=== PATIENT | male | born 1970 | race Two or more races ===

== ENCOUNTER 2021-07-05 20:51 | Emergency (ER) | payer MEDICAID, OTHER ==
[~2021-07-05] VITALS: Ht 170.2 cm; Wt 88.5 kg
[2021-07-05] MEDS ORDERED: KETOROLAC TROMETH 60MG/2ML VIAL IM ONE (22:45)
[2021-07-05 23:25] LABS: Basophils # (auto) 0.1 10 ^3/uL (0-0.2); Basophils % (auto) 1.1 % (0.0-2.0); Eosinophils # (auto) 0.2 10 ^3/uL (0-0.8); Eosinophils % (auto) 3.3 % (0.0-7.0); Hematocrit 43.2 % (41.0-53.0); Hemoglobin 14.9 g/dL (13.5-17.5); Lymphocytes # (auto) 2.4 10 ^3/uL (0.4-5.4); Lymphocytes % (auto) 45.5 % (10.0-50.0); Mean Corpuscular Hemoglobin 33.3 pg (28.0-32.0); Mean Corpuscular Hgb Conc. 34.5 g/dL (32.0-36.0); Mean Corpuscular Volume 96.5 fL (80.0-100.0); Monocytes # (auto) 0.3 10 ^3/uL (0-1.3); Monocytes % (auto) 4.9 % (0.0-12.0); Neutrophils # (auto) 2.4 10 ^3/uL (1.6-8.6); Neutrophils % (auto) 45.2 % (37.0-80.0); Red Blood Cells 4.47 10^6/uL (4.5-5.90); White Blood Cell 5.3 10^3/uL (4.4-10.8)
[2021-07-05 23:46] LABS: BUN/Creatinine Ratio 9.7; Calcium 8.9 mg/dL (8.5-10.1); Potassium 4.1 mmol/L (3.5-5.1)
[2021-07-05 23:48] LABS: Bilirubin, Total 0.7 mg/dL (0.2-1.0); Total Protein 7.5 g/dL (6.4-8.2)
[2021-07-06 02:55] VITALS: BP 145/99
== END 2021-07-06 02:05 | disposition home or self-care (01) ==
LOC: ER 20:51
DX: R10.32 Left lower quadrant pain (principal); R11.2 Nausea with vomiting, unspecified
CPT/HCPCS: 36415; 74176; 80053; 83690; 84484; 85025; 93005; 96372; 99285; J1885

== ENCOUNTER 2021-07-12 09:42 | Emergency (ER) | payer MEDICAID ==
[~2021-07-12] VITALS: Ht 167.6 cm; Wt 88.5 kg
[2021-07-12 10:02] VITALS: BP 117/76
== END 2021-07-13 02:52 | disposition left against medical advice (07) ==
LOC: ER 09:42
DX: R10.32 Left lower quadrant pain (principal); R11.2 Nausea with vomiting, unspecified; Z53.21 Procedure and treatment not carried out due to patient leaving prior to being seen by health care provider

== ENCOUNTER 2022-05-08 17:58 | Inpatient (IN) | payer MEDICAID ==
[~2022-05-08] VITALS: Ht 167.6 cm; Wt 72.6 kg
[2022-05-08] MEDS ORDERED: SODIUM CHLORIDE 0.9% 1,000 ML IV ONE (18:15)
[2022-05-08] MEDS ORDERED: ASPirin 325 MG TAB PO ONE (18:15)
[2022-05-08 18:43] LABS: Basophils # (auto) 0 10 ^3/uL (0-0.2); Basophils % (auto) 0.9 % (0.0-2.0); Eosinophils # (auto) 0.1 10 ^3/uL (0-0.8); Eosinophils % (auto) 2.8 % (0.0-7.0); Hematocrit 39.3 % (41.0-53.0); Hemoglobin 13.4 g/dL (13.5-17.5); Lymphocytes % (auto) 38.6 % (10.0-50.0); Mean Corpuscular Hgb Conc. 34.2 g/dL (32.0-36.0); Mean Corpuscular Volume 96.4 fL (80.0-100.0); Monocytes # (auto) 0.2 10 ^3/uL (0-1.3); Monocytes % (auto) 4.2 % (0.0-12.0); Neutrophils # (auto) 2.7 10 ^3/uL (1.6-8.6); Neutrophils % (auto) 53.5 % (37.0-80.0); Nucleated Red Blood Cells % 0.4 %; Red Blood Cells 4.07 10^6/uL (4.5-5.90); Red Cell Distribution Width 13.7 % (11.8-14.3); White Blood Cell 5.1 10^3/uL (4.4-10.8)
[2022-05-08 19:03] LABS: INR 1.05 (0.9-1.15); Partial Thromboplastin Time 31.6 sec (24.6-33.4)
[2022-05-08 19:09] LABS: Albumin 3.3 g/dL (3.4-5.0); Calcium 8.5 mg/dL (8.5-10.1); Magnesium 2.4 mg/dL (1.6-2.6); Potassium 4.3 mmol/L (3.5-5.1)
[2022-05-08 19:14] LABS: BUN/Creatinine Ratio 7.9; Bilirubin, Total 0.4 mg/dL (0.2-1.0); Total Protein 6.6 g/dL (6.4-8.2)
[2022-05-08] MEDS ORDERED: ACETAMINOPHEN 325 MG TAB PO PRN (22:30)
[2022-05-08] MEDS ORDERED: HYDROcodone-ACET 5/325MG TAB PO PRN (22:30)
[2022-05-08] MEDS ORDERED: DOCUSATE SOD 100 MG CAP PO PRN (22:30)
[2022-05-08] MEDS ORDERED: SOD CHL 0.45% 1,000 ML IV SCH (22:30)
[2022-05-08] MEDS ORDERED: ONDANSETRON HCL 4 MG/2 ML VIAL IV PRN (22:30)
[2022-05-09] MEDS ORDERED: NITROGLYCERIN 0.4 MG SL TAB SL PRN (00:45)
[2022-05-09] MEDS ORDERED: MORPHINE SULFATE INJ 2 MG/ml SYRG IV PRN (00:45)
[2022-05-09 05:30] VITALS: BP 116/78
[2022-05-09 05:57] LABS: Basophils # (auto) 0 10 ^3/uL (0-0.2); Basophils % (auto) 1.1 % (0.0-2.0); Eosinophils # (auto) 0.2 10 ^3/uL (0-0.8); Eosinophils % (auto) 3.8 % (0.0-7.0); Hematocrit 35.8 % (41.0-53.0); Hemoglobin 12.4 g/dL (13.5-17.5); Lymphocytes # (auto) 1.3 10 ^3/uL (0.4-5.4); Mean Corpuscular Hemoglobin 32.7 pg (28.0-32.0); Mean Corpuscular Hgb Conc. 34.6 g/dL (32.0-36.0); Mean Corpuscular Volume 94.5 fL (80.0-100.0); Monocytes # (auto) 0.3 10 ^3/uL (0-1.3); Monocytes % (auto) 6.7 % (0.0-12.0); Neutrophils # (auto) 2.3 10 ^3/uL (1.6-8.6); Neutrophils % (auto) 55.4 % (37.0-80.0); Nucleated Red Blood Cells % 0.1 %; Red Blood Cells 3.78 10^6/uL (4.5-5.90); Red Cell Distribution Width 13.7 % (11.8-14.3); White Blood Cell 4.1 10^3/uL (4.4-10.8)
[2022-05-09 06:18] LABS: BUN/Creatinine Ratio 12.1; Calcium 8.3 mg/dL (8.5-10.1); Potassium 4.2 mmol/L (3.5-5.1)
[2022-05-09 06:27] LABS: Bilirubin, Total 0.2 mg/dL (0.2-1.0); Total Protein 6.2 g/dL (6.4-8.2)
[2022-05-09 07:19] LABS: Urine Bacteria NONE SEEN /hpf (None Seen); Urine Blood Negative /uL (Negative); Urine Mucus FEW (None Seen); Urine Specific Gravity 1.023 (1.001-1.035); Urine WBC 2 /hpf (0 - 3)
[2022-05-09] MEDS ORDERED: FAMOTIDINE (10MG/ML) 2ML VL IV SCH (10:00)
[2022-05-09] MEDS ORDERED: ASPirin 81 mg TAB PO SCH (10:00)
== END 2022-05-09 08:05 | disposition left against medical advice (07) | DRG 47 ==
LOC: ER 17:58 → TELE 05-09 00:32
PROVIDERS: ADMIT Nurse Practitioner Family; ATTEND Nurse Practitioner Acute Care
DX: G45.9 Transient cerebral ischemic attack, unspecified (principal); E88.09 Other disorders of plasma-protein metabolism, not elsewhere classified; Z20.822 Contact with and (suspected) exposure to COVID-19; Z53.29 Procedure and treatment not carried out because of patient's decision for other reasons
CPT/HCPCS: 36415; 70450; 71045; 80053; 81001; 83735; 83880; 84484; 85025; 85379; 85610; 85730; 87426; 93971; 96360; G0378

== ENCOUNTER 2022-05-09 09:28 | Inpatient (IN) | payer MEDICAID ==
[~2022-05-09] VITALS: Ht 167.6 cm; Wt 165.2 kg
[2022-05-09] MEDS ORDERED: MORPHINE SULFATE INJ 2 MG/ml SYRG IV PRN (12:45)
[2022-05-09] MEDS ORDERED: NITROGLYCERIN 0.4 MG SL TAB SL PRN (12:45)
[2022-05-09] MEDS ORDERED: NICOTINE 7MG/24HR TOPICAL PATCH TD ONE (13:00)
[2022-05-09 14:06] LABS: Cholesterol 135 mg/dL (< 200); Triglycerides 72 mg/dL (< 150)
[2022-05-09 14:12] LABS: HDL Cholesterol 62 mg/dL (40-59); LDL Cholesterol 71 mg/dL (< 100)
[2022-05-09] MEDS: SODIUM CHLORIDE 0.9% 1,000 ML IV SCH ×2 (20:35→21:34)
[2022-05-09] MEDS: HYDROcodone-ACET 5/325MG TAB PO PRN (23:10)
[2022-05-10] MEDS: SODIUM CHLORIDE 0.9% 1,000 ML IV SCH ×3 (05:28→19:45)
[2022-05-10] MEDS: HYDROcodone-ACET 5/325MG TAB PO PRN ×3 (05:41→18:28)
[2022-05-10 08:41] LABS: Basophils # (auto) 0 10 ^3/uL (0-0.2); Basophils % (auto) 0.6 % (0.0-2.0); Eosinophils # (auto) 0.1 10 ^3/uL (0-0.8); Hematocrit 38.8 % (41.0-53.0); Hemoglobin 13.3 g/dL (13.5-17.5); Lymphocytes % (auto) 24.2 % (10.0-50.0); Mean Corpuscular Hemoglobin 33.4 pg (28.0-32.0); Mean Corpuscular Hgb Conc. 34.3 g/dL (32.0-36.0); Mean Corpuscular Volume 97.5 fL (80.0-100.0); Monocytes # (auto) 0.3 10 ^3/uL (0-1.3); Monocytes % (auto) 6.3 % (0.0-12.0); Neutrophils # (auto) 2.8 10 ^3/uL (1.6-8.6); Neutrophils % (auto) 65.9 % (37.0-80.0); Nucleated Red Blood Cells % 0.1 %; Red Blood Cells 3.99 10^6/uL (4.5-5.90); Red Cell Distribution Width 13.7 % (11.8-14.3); White Blood Cell 4.2 10^3/uL (4.4-10.8)
[2022-05-10 09:21] LABS: Albumin 3.3 g/dL (3.4-5.0); BUN/Creatinine Ratio 12.1; Bilirubin, Total 0.8 mg/dL (0.2-1.0); Calcium 8.4 mg/dL (8.5-10.1); Potassium 3.8 mmol/L (3.5-5.1); Total Protein 6.7 g/dL (6.4-8.2)
[2022-05-10] MEDS: NICOTINE 7MG/24HR TOPICAL PATCH TD SCH (10:00)
[2022-05-10] MEDS: ENOXAPARIN SOD 40 MG/0.4 ML SYRINGE SC SCH (10:19)
[2022-05-10 13:03] LABS: Folate (Folic Acid) 21.03 ng/mL (5.38-24)
[2022-05-10 16:07] VITALS: BP 140/78
[2022-05-10 16:40] VITALS: BP 149/91
[2022-05-10 21:00] VITALS: BP 113/56
[2022-05-11] VITALS (8 sets, daily range): BP systolic 110–146; BP diastolic 71–87
[2022-05-11] MEDS: HYDROcodone-ACET 5/325MG TAB PO PRN ×2 (04:07→19:31)
[2022-05-11] MEDS: SODIUM CHLORIDE 0.9% 1,000 ML IV SCH ×3 (04:16→21:54)
[2022-05-11] MEDS: ENOXAPARIN SOD 40 MG/0.4 ML SYRINGE SC SCH (09:49)
[2022-05-11] MEDS: NICOTINE 7MG/24HR TOPICAL PATCH TD SCH (10:00)
[2022-05-11] MEDS ORDERED: LORazepam 2MG/ML-1ML VIAL IV PRN (21:30)
[2022-05-11] MEDS: GABAPENTIN 100 MG CAP PO SCH (22:03)
[2022-05-12] VITALS (7 sets, daily range): BP systolic 111–133; BP diastolic 75–81
[2022-05-12] MEDS: HYDROcodone-ACET 5/325MG TAB PO PRN ×2 (04:18→20:06)
[2022-05-12] MEDS: SODIUM CHLORIDE 0.9% 1,000 ML IV SCH ×3 (05:00→21:00)
[2022-05-12] MEDS: GABAPENTIN 100 MG CAP PO SCH ×2 (09:18→21:15)
[2022-05-12] MEDS: ENOXAPARIN SOD 40 MG/0.4 ML SYRINGE SC SCH (09:18)
[2022-05-12] MEDS: NICOTINE 7MG/24HR TOPICAL PATCH TD SCH (10:00)
[2022-05-13 05:00] VITALS: BP 113/76
[2022-05-13] MEDS: SODIUM CHLORIDE 0.9% 1,000 ML IV SCH ×2 (05:00→13:00)
[2022-05-13 08:00] VITALS: BP 129/94
[2022-05-13] MEDS: NICOTINE 7MG/24HR TOPICAL PATCH TD SCH (10:00)
[2022-05-13] MEDS: ENOXAPARIN SOD 40 MG/0.4 ML SYRINGE SC SCH (10:37)
[2022-05-13] MEDS: GABAPENTIN 100 MG CAP PO SCH (10:37)
[2022-05-13] MEDS ORDERED: CEPH-322 PO (12:54)
[2022-05-13] MEDS ORDERED: TRAM50TA2 PO (12:54)
[2022-05-13] MEDS ORDERED: METH4PAK PO (12:54)
[2022-05-13 13:00] VITALS: BP 137/101
== END 2022-05-13 15:50 | disposition home or self-care (01) | DRG 351 ==
LOC: ER 09:28 → TELE 12:43 → TELE-WESTW 05-10 15:42
PROVIDERS: ADMIT Registered Nurse; ATTEND Family Medicine
DX: M65.842 Other synovitis and tenosynovitis, left hand (principal); E78.5 Hyperlipidemia, unspecified; Z20.822 Contact with and (suspected) exposure to COVID-19; Z79.899 Other long term (current) drug therapy; Z72.0 Tobacco use; Z71.6 Tobacco abuse counseling
CPT/HCPCS: 36415; 70450; 70551; 72125; 72141; 73218; 80053; 80061; 82607; 82746; 83036; 84443; 85025; 87426; 93306; 93886; G0378

== ENCOUNTER 2022-06-07 20:10 | Emergency (ER) | payer MEDICAID ==
[~2022-06-07] VITALS: Ht 167.6 cm; Wt 81.0 kg
[~2022-06-07 20:10] MED LIST: AUG875T PO; CEPH-322 PO; METH4PAK PO; METR500T PO; TRAM50TA2 PO
[2022-06-07] MEDS ORDERED: IBUPROFEN 800 MG TAB PO ONE (20:45)
[2022-06-08 04:45] VITALS: BP 118/68
[2022-06-08] MEDS ORDERED: KETOROLAC TROMETH 60MG/2ML VIAL IM ONE (04:45)
[2022-06-08] MEDS ORDERED: methylPREDNISolone SOD SUCC 125 MG/2 ML VL IM ONE (04:45)
[2022-06-08] MEDS ORDERED: PRED30TA4 PO (04:49)
[2022-06-08] MEDS ORDERED: INDO50CA82 PO (04:49)
== END 2022-06-08 06:10 | disposition home or self-care (01) ==
LOC: ER 20:10
DX: M10.9 Gout, unspecified (principal); F17.210 Nicotine dependence, cigarettes, uncomplicated; Z79.2 Long term (current) use of antibiotics; Z79.899 Other long term (current) drug therapy
CPT/HCPCS: 73562; 96372; 99284; J1885; J2930

== ENCOUNTER 2022-06-18 08:35 | Emergency (ER) | payer MEDICAID ==
[~2022-06-18] VITALS: Ht 167.6 cm; Wt 75.8 kg
[~2022-06-18 08:35] MED LIST changes: +INDO50CA82 PO; +PRED30TA4 PO
[2022-06-18 08:59] VITALS: BP 121/80
[2022-06-18] MEDS ORDERED: IBUP800T27 PO (10:07)
== END 2022-06-18 10:10 | disposition home or self-care (01) ==
LOC: ER 08:35
DX: G56.02 Carpal tunnel syndrome, left upper limb (principal); M10.9 Gout, unspecified; F17.210 Nicotine dependence, cigarettes, uncomplicated
CPT/HCPCS: 29125

== ENCOUNTER 2022-06-25 20:42 | Emergency (ER) | payer MEDICAID ==
[~2022-06-25] VITALS: Ht 167.6 cm; Wt 77.8 kg
[~2022-06-25 20:42] MED LIST changes: +IBUP800T27 PO
[2022-06-26 03:23] VITALS: BP 129/59
== END 2022-06-26 03:28 | disposition home or self-care (01) ==
LOC: ER 20:42
DX: M67.441 Ganglion, right hand (principal); M10.9 Gout, unspecified; F17.210 Nicotine dependence, cigarettes, uncomplicated; Z79.1 Long term (current) use of non-steroidal anti-inflammatories (NSAID); Z79.2 Long term (current) use of antibiotics; Z79.899 Other long term (current) drug therapy

== ENCOUNTER 2022-06-29 08:27 | Emergency (ER) | payer MEDICAID ==
[~2022-06-29] VITALS: Ht 167.6 cm; Wt 86.0 kg
[2022-06-29 08:36] VITALS: BP 141/72
[2022-06-29] MEDS ORDERED: GABA300C10 PO (09:55)
[2022-06-29] MEDS ORDERED: METH4PAK PO (09:55)
== END 2022-06-29 10:12 | disposition home or self-care (01) ==
LOC: ER 08:27
DX: G56.02 Carpal tunnel syndrome, left upper limb (principal); R20.0 Anesthesia of skin; F17.210 Nicotine dependence, cigarettes, uncomplicated; Z88.1 Allergy status to other antibiotic agents; Z88.6 Allergy status to analgesic agent

== ENCOUNTER 2022-07-04 02:21 | Emergency (ER) | payer MEDICAID ==
[~2022-07-04] VITALS: Ht 167.6 cm; Wt 87.0 kg
[~2022-07-04 02:21] MED LIST changes: +GABA300C10 PO
[2022-07-04 02:39] VITALS: BP 120/78
[2022-07-04] MEDS ORDERED: AZIT250T9 PO (03:03)
[2022-07-04] MEDS ORDERED: PRED20TA2 PO (03:03)
== END 2022-07-04 04:51 | disposition home or self-care (01) ==
LOC: ER 02:21
DX: J06.9 Acute upper respiratory infection, unspecified (principal); F17.210 Nicotine dependence, cigarettes, uncomplicated; Z88.6 Allergy status to analgesic agent
CPT/HCPCS: 71045

== ENCOUNTER 2022-08-15 11:23 | Emergency (ER) | payer MEDICAID ==
[~2022-08-15] VITALS: Ht 167.6 cm; Wt 74.1 kg
[~2022-08-15 11:23] MED LIST changes: +AZIT-43 PO; -CEPH-322 PO; +CEPH250C PO; +GABA-1250 PO; -GABA300C10 PO; +IBUP-1456 PO; -IBUP800T27 PO; +PRED20TA2 PO
[2022-08-15 12:28] VITALS: BP 149/94
[2022-08-15] MEDS ORDERED: KETOROLAC TROMETH 60MG/2ML VIAL IM ONE (13:45)
[2022-08-15] MEDS ORDERED: HYDR-4902 PO (14:35)
[2022-08-15] MEDS ORDERED: IBUP-1455 PO (14:35)
== END 2022-08-15 14:41 | disposition home or self-care (01) ==
LOC: ER 11:23
DX: M54.40 Lumbago with sciatica, unspecified side (principal); M51.36 Other intervertebral disc degeneration, lumbar region; M10.9 Gout, unspecified; F17.210 Nicotine dependence, cigarettes, uncomplicated; Z79.1 Long term (current) use of non-steroidal anti-inflammatories (NSAID); Z79.899 Other long term (current) drug therapy
CPT/HCPCS: 72100; 96372; 99283; J1885

== ENCOUNTER 2022-09-29 08:29 | Inpatient (IN) | payer MEDICAID ==
[~2022-09-29] VITALS: Ht 167.6 cm; Wt 72.8 kg
[~2022-09-29 08:29] MED LIST changes: +HYDR-4902 PO; +IBUP-1455 PO
[2022-09-29] MEDS ORDERED: ONDANSETRON HCL 4 MG/2 ML VIAL IV ONE (09:00)
[2022-09-29] MEDS ORDERED: PANTOPRAZOLE 40 MG/10 ML VIAL INJ IV ONE (09:00)
[2022-09-29] MEDS ORDERED: KETOROLAC TROMETH 30 MG/ML 1ML VIAL IV ONE (09:00)
[2022-09-29 10:09] LABS: Basophils # (auto) 0 10 ^3/uL (0-0.2); Basophils % (auto) 0.5 % (0.0-2.0); Eosinophils # (auto) 0 10 ^3/uL (0-0.8); Eosinophils % (auto) 0.4 % (0.0-7.0); Hematocrit 42.6 % (41.0-53.0); Hemoglobin 14.5 g/dL (13.5-17.5); Lymphocytes % (auto) 17.4 % (10.0-50.0); Mean Corpuscular Hemoglobin 34.4 pg (28.0-32.0); Mean Corpuscular Hgb Conc. 34.1 g/dL (32.0-36.0); Mean Corpuscular Volume 100.8 fL (80.0-100.0); Monocytes # (auto) 0.4 10 ^3/uL (0-1.3); Monocytes % (auto) 6.6 % (0.0-12.0); Neutrophils # (auto) 4.4 10 ^3/uL (1.6-8.6); Neutrophils % (auto) 75.1 % (37.0-80.0); Nucleated Red Blood Cells % 0.1 %; Red Blood Cells 4.23 10^6/uL (4.5-5.90); Red Cell Distribution Width 13.4 % (11.8-14.3); White Blood Cell 5.8 10^3/uL (4.4-10.8)
[2022-09-29 10:26] LABS: Albumin 4.3 g/dL (3.4-5.0); Calcium 9.5 mg/dL (8.5-10.1); Magnesium 2.2 mg/dL (1.6-2.6); Potassium 3.9 mmol/L (3.5-5.1)
[2022-09-29 10:29] LABS: BUN/Creatinine Ratio 7.4 (10.0-20.0); Bilirubin, Total 0.9 mg/dL (0.2-1.0); Total Protein 8.4 g/dL (6.4-8.2)
[2022-09-29 11:25] VITALS: PULSE 69; RESP 16; O2SAT 98
[2022-09-29] MEDS ORDERED: ONDANSETRON HCL 4 MG/2 ML VIAL IV PRN (18:45)
[2022-09-29] MEDS ORDERED: NITROGLYCERIN 0.4 MG SL TAB SL PRN (18:45)
[2022-09-29] MEDS ORDERED: MORPHINE SULFATE INJ 2 MG/ml SYRG IV PRN (18:45)
[2022-09-29 20:19] VITALS: PULSE 79; RESP 11; O2SAT 94
[2022-09-29 22:29] VITALS: BP 152/95; PULSE 90; RESP 21; TEMP 98.3; O2SAT 95
[2022-09-29] MEDS: KETOROLAC TROMETH 30 MG/ML 1ML VIAL IV PRN (22:40)
[2022-09-29] MEDS: PANTOPRAZOLE 40 MG TAB PO SCH (22:40)
[2022-09-29] MEDS: FOLIC ACID 1 MG, MULTIPLE VITAMIN 10 ML, MAGNESIUM SULF SDV 50% 8 MEQ, THIAMINE INJ 100... INJ SCH ×5 (23:08)
[2022-09-30 01:56] LABS: Urine Bacteria NONE SEEN /hpf (None Seen); Urine Blood Negative /uL (Negative); Urine Clarity Clear (Clear); Urine Color Yellow (Yellow); Urine Mucus FEW (None Seen); Urine Protein, UAD TRACE (Negative); Urine Specific Gravity 1.019 (1.001-1.035); Urine Urobilinogen Normal (Negative); Urine WBC 3 /hpf (0 - 3); Urine pH 5.5 (5.0-8.0)
[2022-09-30 02:48] LABS: Amphetamine Screen, Urine NEGATIVE (NEGATIVE); Barbiturate Scree,Urine NEGATIVE (NEGATIVE); Benzodiazephine Screen, Urine NEGATIVE (NEGATIVE); Cannabinoid Screen, Urine POSITIVE (NEGATIVE); Cocaine Screen, Urine NEGATIVE (NEGATIVE)
[2022-09-30 02:55] LABS: Opiate Scree,Urine NEGATIVE (NEGATIVE); Phencyclidine Screen, Urine NEGATIVE (NEGATIVE)
[2022-09-30 05:00] VITALS: BP 118/67; PULSE 64; RESP 18; TEMP 97.7; O2SAT 100
[2022-09-30] MEDS: KETOROLAC TROMETH 30 MG/ML 1ML VIAL IV PRN (05:23)
[2022-09-30 06:56] LABS: Albumin 3.9 g/dL (3.4-5.0); Calcium 8.7 mg/dL (8.5-10.1); Potassium 3.8 mmol/L (3.5-5.1)
[2022-09-30 07:00] LABS: BUN/Creatinine Ratio 10.1 (10.0-20.0); Bilirubin, Total 1.6 mg/dL (0.2-1.0); Total Protein 7.6 g/dL (6.4-8.2)
[2022-09-30] MEDS: PANTOPRAZOLE 40 MG TAB PO SCH ×2 (08:47→21:40)
[2022-09-30] MEDS: THIAMINE HCL 100 MG TAB PO SCH (08:47)
[2022-09-30] MEDS: chlordiazePOXIDE HCL 5 MG CAP PO PRN ×2 (08:48→14:44)
[2022-09-30 09:42] VITALS: BP 123/74; PULSE 79; RESP 16; TEMP 98.4; O2SAT 95
[2022-09-30 13:36] VITALS: BP 118/62; PULSE 71; RESP 17; TEMP 97.6; O2SAT 97
[2022-09-30] MEDS ORDERED: GABA-1250 PO (15:03)
[2022-09-30] MEDS ORDERED: PANT40T PO (15:03)
[2022-09-30 15:32] VITALS: BP_SYST 118; BP_SYST 123; BP_DIAS 62; BP_DIAS 74; PULSE 71; PULSE 81; RESP 15; RESP 17; TEMP 97.6; O2SAT 95; O2SAT 97
[2022-09-30 16:54] VITALS: BP 114/67; PULSE 82; RESP 17; TEMP 97.6; O2SAT 95
[2022-09-30] MEDS: FOLIC ACID 1 MG, MULTIPLE VITAMIN 10 ML, MAGNESIUM SULF SDV 50% 8 MEQ, THIAMINE INJ 100... INJ SCH ×5 (20:00)
[2022-09-30 22:00] VITALS: BP 141/91; PULSE 84; RESP 18; TEMP 98.2; O2SAT 93
[2022-10-01 05:00] VITALS: BP 119/71; PULSE 94; RESP 18; TEMP 98; O2SAT 95
[2022-10-01] MEDS: THIAMINE HCL 100 MG TAB PO SCH (08:19)
[2022-10-01] MEDS: PANTOPRAZOLE 40 MG TAB PO SCH (08:19)
[2022-10-01 08:30] VITALS: BP 123/74; PULSE 81; RESP 15; TEMP 97.6
[2022-10-01 11:04] VITALS: BP 123/74; PULSE 87; RESP 15; TEMP 97.6; O2SAT 95
[2022-10-01 13:19] VITALS: BP 117/75; PULSE 73; RESP 16; TEMP 98.1; O2SAT 99
== END 2022-10-01 15:30 | disposition home or self-care (01) | DRG 241 ==
LOC: ER 08:29 → OVERFLOW 18:38 → WEST WING 21:37
PROVIDERS: ADMIT Hospitalist; ATTEND Hospitalist
DX: K29.20 Alcoholic gastritis without bleeding (principal); K85.90 Acute pancreatitis without necrosis or infection, unspecified; F10.10 Alcohol abuse, uncomplicated; Y90.9 Presence of alcohol in blood, level not specified
CPT/HCPCS: 36415; 74176; 76705; 80053; 80307; 80320; 81001; 83690; 83735; 85025; C9113; G0378; J1885; J2405

== ENCOUNTER 2022-11-23 09:07 | Emergency (ER) | payer MEDICAID ==
[~2022-11-23] VITALS: Ht 167.6 cm; Wt 78.8 kg
[~2022-11-23 09:07] MED LIST changes: -AUG875T PO; -AZIT-43 PO; -CEPH250C PO; -HYDR-4902 PO; -IBUP-1455 PO; -IBUP-1456 PO; -INDO50CA82 PO; -METH4PAK PO; -METR500T PO; +PANT40T PO; -PRED20TA2 PO; -PRED30TA4 PO; -TRAM50TA2 PO
[2022-11-23 09:52] LABS: Basophils # (auto) 0.1 10 ^3/uL (0-0.2); Eosinophils # (auto) 0.2 10 ^3/uL (0-0.8); Hemoglobin 14.7 g/dL (13.5-17.5); Lymphocytes # (auto) 1.1 10 ^3/uL (0.4-5.4); Monocytes # (auto) 0.3 10 ^3/uL (0-1.3); Neutrophils # (auto) 3.2 10 ^3/uL (1.6-8.6)
[2022-11-23 09:56] LABS: Basophils % (auto) 1.8 % (0.0-2.0); Eosinophils % (auto) 3.9 % (0.0-7.0); Hematocrit 42.6 % (41.0-53.0); Lymphocytes % (auto) 22.5 % (10.0-50.0); Mean Corpuscular Hemoglobin 35.1 pg (28.0-32.0); Mean Corpuscular Hgb Conc. 34.5 g/dL (32.0-36.0); Mean Corpuscular Volume 101.7 fL (80.0-100.0); Monocytes % (auto) 6.5 % (0.0-12.0); Neutrophils % (auto) 65.3 % (37.0-80.0); Red Blood Cells 4.18 10^6/uL (4.5-5.90); Red Cell Distribution Width 12.9 % (11.8-14.3); White Blood Cell 4.8 10^3/uL (4.4-10.8)
[2022-11-23 10:03] LABS: Urine Bacteria NONE SEEN /hpf (None Seen); Urine Blood Negative /uL (Negative); Urine Clarity Clear (Clear); Urine Color Yellow (Yellow); Urine Protein, UAD Negative (Negative); Urine Specific Gravity 1.013 (1.001-1.035); Urine Urobilinogen Normal (Negative); Urine WBC 1 /hpf (0 - 3)
[2022-11-23 10:04] VITALS: BP 142/84; PULSE 99; RESP 16; TEMP 97.5; O2SAT 94
[2022-11-23 10:05] LABS: Amphetamine Screen, Urine Neg (NEGATIVE); Barbiturate Scree,Urine Neg (NEGATIVE); Benzodiazephine Screen, Urine Neg (NEGATIVE); Cocaine Screen, Urine Neg (NEGATIVE); Opiate Scree,Urine Neg (NEGATIVE); Phencyclidine Screen, Urine Neg (NEGATIVE)
[2022-11-23 10:06] LABS: Cannabinoid Screen, Urine Pos (NEGATIVE)
[2022-11-23 10:22] LABS: Alanine Aminotransferase 83 U/L (7-40); Alkaline Phosphatase 74 U/L (46-116); Anion Gap 10 (5-15); Aspartate Aminotransferase 125 U/L (13-40); BUN/Creatinine Ratio 7.4 (10.0-20.0); Bilirubin, Total 0.7 mg/dL (0.2-1.0); Blood Urea Nitrogen 5 mg/dL (9-23); Calcium 9.4 mg/dL (8.7-10.4); Carbon Dioxide 24 mmol/L (20-30); Chloride 102 mmol/L (98-107); Glucose 90 mg/dL (74-106); Magnesium 1.8 mg/dL (1.6-2.6); Potassium 4.8 mmol/L (3.5-5.1); Sodium 136 mmol/L (136-145); Total Protein 7.8 g/dL (5.7-8.2)
[2022-11-23] MEDS ORDERED: SODIUM CHLORIDE 0.9% 1,000 ML IV ONE (10:30)
[2022-11-23] MEDS ORDERED: ONDANSETRON ODT 4 MG TAB PO ONE (10:30)
[2022-11-23] MEDS ORDERED: MAALOX PLUS or MAALOX 30 ML PO ONE (12:00)
[2022-11-23] MEDS ORDERED: DONNATAL 5ml ORAL Elix (BELLADONNA ALK-PHENOBARB) PO ONE (12:00)
[2022-11-23] MEDS ORDERED: LIDOCAINE VISCOUS 2% 15ML UD PO ONE (12:00)
[2022-11-23] MEDS ORDERED: FAMO20TA10 PO (12:03)
[2022-11-23] MEDS ORDERED: ACET-1079 PO (12:03)
== END 2022-11-23 12:04 | disposition home or self-care (01) ==
LOC: ER 09:07
DX: K29.70 Gastritis, unspecified, without bleeding (principal); F17.210 Nicotine dependence, cigarettes, uncomplicated; F12.10 Cannabis abuse, uncomplicated; Z79.899 Other long term (current) drug therapy
CPT/HCPCS: 36415; 76705; 80053; 80307; 81001; 83690; 83735; 84484; 85025; 93005; 96360; 99284; J7030; Q0162

== ENCOUNTER 2023-03-16 14:06 | Emergency (ER) | payer MEDICAID ==
[~2023-03-16] VITALS: Ht 167.6 cm; Wt 80.6 kg
[~2023-03-16 14:06] MED LIST changes: +ACET-1079 PO; +FAMO20TA10 PO
[2023-03-16] MEDS ORDERED: IPRATROPIUM BROM 0.5 MG/2.5ML INH SOL NEB ONE (14:30)
[2023-03-16] MEDS ORDERED: methylPREDNISolone SOD SUCC 125 MG/2 ML VL IV ONE (14:30)
[2023-03-16] MEDS ORDERED: ALBUTEROL SULF 2.5 MG/0.5ML(0.5%) NEB SOLN NEB ONE (14:30)
[2023-03-16] MEDS ORDERED: SODIUM CHLORIDE 0.9% 1,000 ML IV ONE ×2 (14:30→16:30)
[2023-03-16 15:14] LABS: Base Excess -2.9 mmol/L (-2.0-2.0)
[2023-03-16 15:26] LABS: Basophils # (auto) 0 10 ^3/uL (0-0.2); Eosinophils # (auto) 0.1 10 ^3/uL (0-0.8); Eosinophils % (auto) 2.4 % (0.0-7.0); Hematocrit 40.9 % (41.0-53.0); Hemoglobin 14.1 g/dL (13.5-17.5); Lymphocytes # (auto) 1.3 10 ^3/uL (0.4-5.4); Mean Corpuscular Hemoglobin 32.7 pg (28.0-32.0); Mean Corpuscular Hgb Conc. 34.4 g/dL (32.0-36.0); Monocytes # (auto) 0.4 10 ^3/uL (0-1.3); Monocytes % (auto) 9.3 % (0.0-12.0); Neutrophils # (auto) 2.7 10 ^3/uL (1.6-8.6); Neutrophils % (auto) 59.3 % (37.0-80.0); Red Cell Distribution Width 14.3 % (11.8-14.3); White Blood Cell 4.6 10^3/uL (4.4-10.8)
[2023-03-16 15:41] LABS: Alanine Aminotransferase 130 U/L (7-40); Albumin 5.2 g/dL (3.2-4.8); Alkaline Phosphatase 77 U/L (46-116); Anion Gap 12 (5-15); Aspartate Aminotransferase 190 U/L (13-40); BUN/Creatinine Ratio 7.1 (10.0-20.0); Blood Alcohol 222.8 mg/dL (<10); Blood Urea Nitrogen 5 mg/dL (9-23); Calcium 10.2 mg/dL (8.5-10.1); Carbon Dioxide 23 mmol/L (20-30); Chloride 98 mmol/L (98-107); Glucose 85 mg/dL (74-106); Sodium 133 mmol/L (136-145)
[2023-03-16 15:42] LABS: Bilirubin, Total 1.2 mg/dL (0.2-1.0); Creatine Kinase IFCC 353 U/L (46-171); Total Protein 7.8 g/dL (5.7-8.2)
[2023-03-16 16:04] VITALS: BP 142/80; PULSE 90; RESP 16; TEMP 97.9; O2SAT 98
[2023-03-16 16:09] LABS: Lactic Acid w/Reflex 2.4 mmol/L (0.4-2.0)
[2023-03-16 16:12] LABS: Urine Bacteria NONE SEEN /hpf (None Seen); Urine Blood Negative /uL (Negative); Urine Clarity Clear (Clear); Urine Color Yellow (Yellow); Urine Protein, UAD Negative (Negative); Urine Specific Gravity 1.009 (1.001-1.035); Urine Urobilinogen Normal (Negative); Urine WBC <1 /hpf (0 - 3); Urine pH 5.5 (5.0-8.0)
[2023-03-16 16:24] LABS: Amphetamine Screen, Urine Pos (NEGATIVE); Barbiturate Scree,Urine Neg (NEGATIVE); Benzodiazephine Screen, Urine Neg (NEGATIVE)
[2023-03-16 16:25] LABS: Cannabinoid Screen, Urine Neg (NEGATIVE); Cocaine Screen, Urine Neg (NEGATIVE); Opiate Scree,Urine Neg (NEGATIVE); Phencyclidine Screen, Urine Neg (NEGATIVE)
== END 2023-03-16 21:11 | disposition left against medical advice (07) ==
LOC: ER 14:06
DX: M62.82 Rhabdomyolysis (principal); R79.89 Other specified abnormal findings of blood chemistry; F10.10 Alcohol abuse, uncomplicated; F15.10 Other stimulant abuse, uncomplicated; R06.00 Dyspnea, unspecified; Z79.899 Other long term (current) drug therapy; Y90.8 Blood alcohol level of 240 mg/100 ml or more
CPT/HCPCS: 36415; 36600; 71045; 80053; 80307; 80320; 81001; 82550; 82805; 83605; 83735; 83880; 84484; 85025; 85379; 93005; 94640; 96361; 96374; 99285; J2930; J7030; J7644

== ENCOUNTER 2023-05-10 15:07 | Emergency (ER) | payer MEDICAID ==
[~2023-05-10] VITALS: Ht 162.6 cm; Wt 84.5 kg
[2023-05-10 18:29] VITALS: BP 129/89; PULSE 100; RESP 16; TEMP 98; O2SAT 94
[2023-05-10] MEDS: KETOROLAC TROMETH 60MG/2ML VIAL IM ONE (19:09)
[2023-05-10 19:22] LABS: Basophils # (auto) 0 10 ^3/uL (0-0.2); Basophils % (auto) 0.8 % (0.0-2.0); Eosinophils # (auto) 0.1 10 ^3/uL (0-0.8); Eosinophils % (auto) 1.8 % (0.0-7.0); Hematocrit 39.2 % (41.0-53.0); Hemoglobin 13.2 g/dL (13.5-17.5); Lymphocytes # (auto) 1.3 10 ^3/uL (0.4-5.4); Lymphocytes % (auto) 24.6 % (10.0-50.0); Mean Corpuscular Hemoglobin 32.6 pg (28.0-32.0); Mean Corpuscular Hgb Conc. 33.7 g/dL (32.0-36.0); Mean Corpuscular Volume 96.7 fL (80.0-100.0); Monocytes # (auto) 0.5 10 ^3/uL (0-1.3); Monocytes % (auto) 9.9 % (0.0-12.0); Neutrophils # (auto) 3.2 10 ^3/uL (1.6-8.6); Neutrophils % (auto) 62.9 % (37.0-80.0); Red Blood Cells 4.05 10^6/uL (4.5-5.90); Red Cell Distribution Width 13.8 % (11.8-14.3); White Blood Cell 5.1 10^3/uL (4.4-10.8)
[2023-05-10 19:36] LABS: Chloride 98 mmol/L (98-107); Potassium 4.2 mmol/L (3.5-5.1); Sodium 131 mmol/L (136-145)
[2023-05-10 19:37] LABS: Anion Gap 12 (5-15); Calcium 9.3 mg/dL (8.7-10.4); Carbon Dioxide 21 mmol/L (20-30)
[2023-05-10 19:41] LABS: Uric Acid 7.4 mg/dL (3.7-9.2)
[2023-05-10 19:42] LABS: Glucose 114 mg/dL (74-106)
[2023-05-10 19:45] LABS: BUN/Creatinine Ratio 6.1 (10.0-20.0); Blood Urea Nitrogen < 5 mg/dL (9-23)
[2023-05-10] MEDS ORDERED: IBUP-1456 PO (20:15)
== END 2023-05-10 22:10 | disposition home or self-care (01) ==
LOC: ER 15:07
DX: G56.02 Carpal tunnel syndrome, left upper limb (principal); F12.10 Cannabis abuse, uncomplicated; F17.210 Nicotine dependence, cigarettes, uncomplicated
CPT/HCPCS: 29125; 36415; 73130; 80048; 84550; 85025; 96372; 99284; J1885

== ENCOUNTER 2023-07-03 15:35 | Emergency (ER) | payer MEDICAID ==
[~2023-07-03] VITALS: Ht 170.2 cm; Wt 82.4 kg
[~2023-07-03 15:35] MED LIST changes: +IBUP-1456 PO
[2023-07-03 15:48] VITALS: BP 117/77; PULSE 115
[2023-07-03] MEDS ORDERED: METO10TA3 PO (22:50)
[2023-07-03] MEDS: METOCLOPRAMIDE HCL 5MG/ml INJ 2ml VIAL IM ONE (22:57)
[2023-07-03 23:03] VITALS: RESP 20; O2SAT 99
== END 2023-07-03 23:12 | disposition home or self-care (01) ==
LOC: ER 15:35 → TELE 20:26 → UNDOADMIN 20:26 → ER 23:12
DX: R06.6 Hiccough (principal); M10.9 Gout, unspecified; F17.210 Nicotine dependence, cigarettes, uncomplicated; F15.90 Other stimulant use, unspecified, uncomplicated; Z98.890 Other specified postprocedural states; Z79.899 Other long term (current) drug therapy
CPT/HCPCS: 70490; 96372; 99285; J2765

== ENCOUNTER 2023-09-26 09:06 | Emergency (ER) | payer MEDICAID ==
[~2023-09-26] VITALS: Ht 167.6 cm; Wt 79.4 kg
[~2023-09-26 09:06] MED LIST changes: +METO10TA3 PO
[2023-09-26] MEDS: SODIUM CHLORIDE 0.9% 1,000 ML IV ONE (10:29)
[2023-09-26] MEDS: DexAMETHasone SOD PHOS 10MG/1ML VIAL INJ IV ONE (10:33)
[2023-09-26] MEDS: cefTRIAXone 1GM/50ML D5W 50 ML IV ONE (10:33)
[2023-09-26 10:46] LABS: Urine Bacteria None Seen /hpf (None Seen)
[2023-09-26 10:49] LABS: Basophils # (auto) 0 10 ^3/uL (0-0.2); Basophils % (auto) 0.4 % (0.0-2.0); Eosinophils # (auto) 0.1 10 ^3/uL (0-0.8); Eosinophils % (auto) 1.3 % (0.0-7.0); Hematocrit 41.8 % (41.0-53.0); Hemoglobin 14.5 g/dL (13.5-17.5); Lymphocytes # (auto) 0.6 10 ^3/uL (0.4-5.4); Lymphocytes % (auto) 12.8 % (10.0-50.0); Mean Corpuscular Hgb Conc. 34.8 g/dL (32.0-36.0); Mean Corpuscular Volume 100.6 fL (80.0-100.0); Monocytes # (auto) 0.6 10 ^3/uL (0-1.3); Monocytes % (auto) 13.1 % (0.0-12.0); Neutrophils # (auto) 3.1 10 ^3/uL (1.6-8.6); Neutrophils % (auto) 72.4 % (37.0-80.0); Red Blood Cells 4.16 10^6/uL (4.5-5.90); Red Cell Distribution Width 13.5 % (11.8-14.3); White Blood Cell 4.3 10^3/uL (4.4-10.8)
[2023-09-26 11:15] LABS: Urine Blood Negative /uL (Negative); Urine Clarity Clear (Clear); Urine Color Yellow (Yellow); Urine Mucus FEW (None Seen); Urine Protein, UAD 1+ (Negative); Urine Specific Gravity 1.023 (1.001-1.035); Urine Urobilinogen 2 mg/dL (Negative); Urine WBC 1 /hpf (0 - 3)
[2023-09-26] MEDS ORDERED: AZIT-185 PO (11:22)
[2023-09-26] MEDS ORDERED: LIDO2SOL26 MT (11:22)
[2023-09-26] MEDS ORDERED: ACET500T58 PO (11:22)
[2023-09-26 11:51] VITALS: BP 115/81; PULSE 87; RESP 16; TEMP 97.3; O2SAT 96
[2023-09-26] MEDS ORDERED: LOPE2TAB99 PO (12:17)
== END 2023-09-26 11:53 | disposition home or self-care (01) ==
LOC: ER 09:06
DX: B34.9 Viral infection, unspecified (principal); J06.9 Acute upper respiratory infection, unspecified; J02.9 Acute pharyngitis, unspecified; F17.210 Nicotine dependence, cigarettes, uncomplicated; F12.10 Cannabis abuse, uncomplicated
CPT/HCPCS: 36415; 71046; 81001; 85025; 96365; 96375; 99284; J0696; J1100; J7030

== ENCOUNTER 2023-12-02 10:18 | Inpatient (IN) | payer MEDICAID ==
[~2023-12-02] VITALS: Ht 167.6 cm; Wt 85.5 kg
[~2023-12-02 10:18] MED LIST changes: +ACET500T58 PO; +AZIT-185 PO; +LIDO2SOL26 MT; +LOPE2TAB99 PO
[2023-12-02 10:43] VITALS: PULSE 86; RESP 20; O2SAT 96
[2023-12-02] MEDS: SODIUM CHLORIDE 0.9% 1,000 ML IV ONE ×2 (10:50→12:33)
[2023-12-02] MEDS: FAMOTIDINE (10MG/ML) 2ML VL IV ONE (10:55)
[2023-12-02] MEDS: ONDANSETRON HCL 4 MG/2 ML VIAL IV ONE (10:55)
[2023-12-02] MEDS: KETOROLAC TROMETH 30 MG/ML 1ML VIAL IV ONE (10:56)
[2023-12-02 11:11] LABS: Basophils # (auto) 0 10 ^3/uL (0-0.2); Basophils % (auto) 1.1 % (0.0-2.0); Eosinophils # (auto) 0.1 10 ^3/uL (0-0.8); Eosinophils % (auto) 1.6 % (0.0-7.0); Hematocrit 42.8 % (41.0-53.0); Lymphocytes # (auto) 0.7 10 ^3/uL (0.4-5.4); Lymphocytes % (auto) 15.6 % (10.0-50.0); Mean Corpuscular Hemoglobin 36.7 pg (28.0-32.0); Mean Corpuscular Volume 104.7 fL (80.0-100.0); Monocytes # (auto) 0.4 10 ^3/uL (0-1.3); Monocytes % (auto) 8.5 % (0.0-12.0); Neutrophils # (auto) 3.2 10 ^3/uL (1.6-8.6); Neutrophils % (auto) 73.2 % (37.0-80.0); Nucleated Red Blood Cells % 0.1 %; Platelet Count (auto) 187 10^3/uL (140-450); Red Blood Cells 4.09 10^6/uL (4.5-5.90); White Blood Cell 4.3 10^3/uL (4.4-10.8)
[2023-12-02 11:13] LABS: Alanine Aminotransferase 55 U/L (7-40); Alkaline Phosphatase 79 U/L (46-116); Anion Gap 16 (5-15); Aspartate Aminotransferase 136 U/L (13-40); Bilirubin, Total 1.2 mg/dL (0.2-1.0); Calcium 9.9 mg/dL (8.7-10.4); Carbon Dioxide 20 mmol/L (20-31); Chloride 106 mmol/L (98-107); Glucose 123 mg/dL (74-106); Potassium 3.8 mmol/L (3.5-5.1); Sodium 142 mmol/L (136-145)
[2023-12-02 11:14] LABS: Total Protein 7.9 g/dL (5.7-8.2)
[2023-12-02 11:17] LABS: BUN/Creatinine Ratio 6.8 (10.0-20.0); Blood Urea Nitrogen < 5 mg/dL (9-23)
[2023-12-02 11:23] LABS: Urine Bacteria FEW /hpf (None Seen); Urine Blood Negative /uL (Negative); Urine Clarity Clear (Clear); Urine Color Yellow (Yellow); Urine Hyaline Cast MOD /lpf (0 - 2); Urine Mucus FEW (None Seen); Urine Protein, UAD 1+ (Negative); Urine Specific Gravity 1.026 (1.001-1.035); Urine Urobilinogen 2 mg/dL (Negative); Urine WBC 4 /hpf (0 - 3); Urine pH 5.5 (5.0-9.0)
[2023-12-02 11:49] LABS: Lipase 450 U/L (12-53)
[2023-12-02] MEDS ORDERED: ONDANSETRON HCL 4 MG/2 ML VIAL IV PRN (12:45)
[2023-12-02] MEDS ORDERED: NITROGLYCERIN 0.4 MG SL TAB SL PRN (12:45)
[2023-12-02] MEDS ORDERED: MORPHINE SULFATE INJ 2 MG/ml SYRG IV PRN (12:45)
[2023-12-02] MEDS: THIAMINE 100mg/ml INJ (200mg/2ml VIAL) IV ONE (13:27)
[2023-12-02 14:16] VITALS: PULSE 70; RESP 20; O2SAT 95
[2023-12-02 14:18] VITALS: BP 123/86; PULSE 72; RESP 16; TEMP 97.4; O2SAT 97
[2023-12-02] MEDS: SODIUM CHLORIDE 0.9% 1,000 ML IV SCH (15:52)
[2023-12-02] MEDS: GABAPENTIN 400 MG CAP PO SCH (15:53)
[2023-12-02 17:00] VITALS: BP 110/83; PULSE 98; RESP 20; TEMP 98; O2SAT 94
[2023-12-02 21:00] VITALS: BP 135/82; PULSE 87; RESP 20; TEMP 97.6; O2SAT 94
[2023-12-02] MEDS: FAMOTIDINE 20 MG TAB PO SCH (21:11)
[2023-12-03 01:00] VITALS: BP 131/82; PULSE 93; RESP 20; TEMP 97.8; O2SAT 96
[2023-12-03 05:00] VITALS: BP 128/95; PULSE 72; RESP 20; TEMP 98.5; O2SAT 97
[2023-12-03 05:38] LABS: Basophils # (auto) 0 10 ^3/uL (0-0.2); Eosinophils # (auto) 0.1 10 ^3/uL (0-0.8); Monocytes # (auto) 0.3 10 ^3/uL (0-1.3)
[2023-12-03 05:42] LABS: Basophils % (auto) 1.2 % (0.0-2.0); Eosinophils % (auto) 4.3 % (0.0-7.0); Hematocrit 39.5 % (41.0-53.0); Hemoglobin 13.7 g/dL (13.5-17.5); Lymphocytes # (auto) 0.6 10 ^3/uL (0.4-5.4); Lymphocytes % (auto) 20.2 % (10.0-50.0); Mean Corpuscular Hemoglobin 36.6 pg (28.0-32.0); Mean Corpuscular Hgb Conc. 34.8 g/dL (32.0-36.0); Mean Corpuscular Volume 105.3 fL (80.0-100.0); Monocytes % (auto) 10.9 % (0.0-12.0); Neutrophils # (auto) 1.9 10 ^3/uL (1.6-8.6); Neutrophils % (auto) 63.4 % (37.0-80.0); Nucleated Red Blood Cells % 0.1 %; Platelet Count (auto) 137 10^3/uL (140-450); Red Blood Cells 3.75 10^6/uL (4.5-5.90); Red Cell Distribution Width 13.9 % (11.8-14.3)
[2023-12-03 06:06] LABS: Alanine Aminotransferase 39 U/L (7-40); Albumin 4.2 g/dL (3.2-4.8); Alkaline Phosphatase 63 U/L (46-116); Anion Gap 12 (5-15); Aspartate Aminotransferase 86 U/L (13-40); Calcium 8.7 mg/dL (8.7-10.4); Carbon Dioxide 23 mmol/L (20-31); Chloride 106 mmol/L (98-107); Glucose 90 mg/dL (74-106); Lipase 378 U/L (12-53); Potassium 3.6 mmol/L (3.5-5.1); Sodium 141 mmol/L (136-145)
[2023-12-03 06:07] LABS: Bilirubin, Total 1.9 mg/dL (0.2-1.0); Total Protein 6.5 g/dL (5.7-8.2)
[2023-12-03 06:22] LABS: BUN/Creatinine Ratio 8.1 (10.0-20.0); Blood Urea Nitrogen < 5 mg/dL (9-23)
[2023-12-03 07:14] LABS: Triglycerides 71 mg/dL (< 150)
[2023-12-03 07:15] LABS: LDL Cholesterol 69 mg/dL (< 100)
[2023-12-03 07:16] LABS: Cholesterol 137 mg/dL (< 200); HDL Cholesterol 52 mg/dL (40-59)
[2023-12-03 08:00] VITALS: PULSE 74
[2023-12-03] MEDS: THIAMINE HCL 100 MG TAB PO SCH (08:36)
[2023-12-03 09:00] VITALS: BP 118/84; PULSE 74; RESP 20; TEMP 97.6; O2SAT 99
[2023-12-03] MEDS: MORPHINE SULFATE INJ 2 MG/ml SYRG IV PRN (14:49)
[2023-12-03] MEDS ORDERED: ONDANSETRON HCL 4 MG/2 ML VIAL IV PRN (16:45)
[2023-12-03 17:00] VITALS: BP 124/87; PULSE 96; RESP 17; TEMP 97.9; O2SAT 95
[2023-12-03] MEDS: PANTOPRAZOLE 40 MG/10 ML VIAL INJ IV ONE (17:32)
[2023-12-03 21:00] VITALS: BP 121/89; PULSE 130; RESP 20; TEMP 98.7; O2SAT 97
[2023-12-04] VITALS (13 sets, daily range): BP systolic 106–148; BP diastolic 33–91; PULSE 72–165; RESP 16–22; TEMP 97.3–98.8; O2SAT 95–100
[2023-12-04 07:48] LABS: Basophils # (auto) 0 10 ^3/uL (0-0.2); Basophils % (auto) 0.2 % (0.0-2.0); Eosinophils # (auto) 0 10 ^3/uL (0-0.8); Hemoglobin 13.3 g/dL (13.5-17.5); Monocytes # (auto) 0.5 10 ^3/uL (0-1.3); Neutrophils # (auto) 4.2 10 ^3/uL (1.6-8.6)
[2023-12-04 07:51] LABS: Eosinophils % (auto) 0.4 % (0.0-7.0); Hematocrit 38.4 % (41.0-53.0); Lymphocytes # (auto) 0.2 10 ^3/uL (0.4-5.4); Lymphocytes % (auto) 4.8 % (10.0-50.0); Mean Corpuscular Hemoglobin 36.8 pg (28.0-32.0); Mean Corpuscular Hgb Conc. 34.6 g/dL (32.0-36.0); Mean Corpuscular Volume 106.2 fL (80.0-100.0); Monocytes % (auto) 10.5 % (0.0-12.0); Neutrophils % (auto) 84.1 % (37.0-80.0); Platelet Count (auto) 127 10^3/uL (140-450); Red Blood Cells 3.62 10^6/uL (4.5-5.90); Red Cell Distribution Width 13.5 % (11.8-14.3)
[2023-12-04 08:02] LABS: Alanine Aminotransferase 30 U/L (7-40); Albumin 4.2 g/dL (3.2-4.8); Alkaline Phosphatase 57 U/L (46-116); Anion Gap 14 (5-15); Aspartate Aminotransferase 50 U/L (13-40); Calcium 8.5 mg/dL (8.7-10.4); Carbon Dioxide 23 mmol/L (20-31); Chloride 102 mmol/L (98-107); Glucose 164 mg/dL (74-106); Lipase 191 U/L (12-53); Sodium 139 mmol/L (136-145)
[2023-12-04 08:03] LABS: BUN/Creatinine Ratio 7.6 (10.0-20.0); Bilirubin, Total 2.2 mg/dL (0.2-1.0); Blood Urea Nitrogen < 5 mg/dL (9-23); Total Protein 6.6 g/dL (5.7-8.2)
[2023-12-04 08:58] LABS: Hepatitis B Surface Antigen Negative (Negative)
[2023-12-04 09:19] LABS: Hepatitis A Ab IgM Negative; Hepatitis B Core IgM Negative
[2023-12-04 09:20] LABS: Hepatitis C Antibody Negative (Negative)
[2023-12-04 09:31] LABS: Platelet Estimate Decreased
[2023-12-04] MEDS: PANTOPRAZOLE 40 MG/10 ML VIAL INJ IV SCH (10:31)
[2023-12-04] MEDS: MORPHINE SULFATE 4 MG/ML SYR/VIAL IV PRN (10:33)
[2023-12-04] MEDS: LORazepam 2MG/ML-1ML VIAL IV PRN ×3 (12:20→19:09)
[2023-12-04] MEDS ORDERED: FOLIC ACID 1 MG, MAGNESIUM SULF SDV 50% 8 MEQ, MULTIPLE VITAMIN 10 ML, THIAMINE INJ 100... INJ SCH ×2 (12:30→18:00)
[2023-12-04 12:40] LABS: Eosinophils # (auto) 0 10 ^3/uL (0-0.8); Hemoglobin 13.8 g/dL (13.5-17.5); Nucleated Red Blood Cells % 0.1 %; White Blood Cell 8.4 10^3/uL (4.4-10.8)
[2023-12-04 12:42] LABS: Basophils # (auto) 0 10 ^3/uL (0-0.2); Basophils % (auto) 0.4 % (0.0-2.0); Hematocrit 41.1 % (41.0-53.0); Lymphocytes # (auto) 1.1 10 ^3/uL (0.4-5.4); Lymphocytes % (auto) 12.6 % (10.0-50.0); Mean Corpuscular Hgb Conc. 33.6 g/dL (32.0-36.0); Mean Corpuscular Volume 107.2 fL (80.0-100.0); Monocytes # (auto) 1.1 10 ^3/uL (0-1.3); Monocytes % (auto) 12.6 % (0.0-12.0); Neutrophils # (auto) 6.2 10 ^3/uL (1.6-8.6); Neutrophils % (auto) 74.4 % (37.0-80.0); Platelet Count (auto) 133 10^3/uL (140-450); Red Blood Cells 3.84 10^6/uL (4.5-5.90); Red Cell Distribution Width 13.8 % (11.8-14.3)
[2023-12-04] MEDS ORDERED: AMIODARONE BOLUS KIT 100 ML IV ONE (13:00)
[2023-12-04] MEDS: METOPROLOL TARTRATE 1MG/1ML-5ML VIAL IV ONE ×2 (13:02→13:39)
[2023-12-04 13:11] LABS: Alanine Aminotransferase 29 U/L (7-40); Albumin 4.4 g/dL (3.2-4.8); Alkaline Phosphatase 55 U/L (46-116); Anion Gap 19 (5-15); Aspartate Aminotransferase 47 U/L (13-40); Blood Urea Nitrogen 5 mg/dL (9-23); Calcium 8.3 mg/dL (8.7-10.4); Carbon Dioxide 17 mmol/L (20-31); Chloride 104 mmol/L (98-107); Glucose 187 mg/dL (74-106); Potassium 3.2 mmol/L (3.5-5.1); Sodium 140 mmol/L (136-145)
[2023-12-04 13:12] LABS: Bilirubin, Total 2.3 mg/dL (0.2-1.0); Total Protein 6.8 g/dL (5.7-8.2)
[2023-12-04 13:15] LABS: Lactic Acid w/Reflex 8.2 mmol/L (0.4-2.0)
[2023-12-04] MEDS ORDERED: AMIODARONE 450mg/250ml AE 250 ML IV SCH ×3 (13:15→20:15)
[2023-12-04] MEDS: DIGOXIN (250MCG/ML) 2 ML AMPULE IV ONE (13:15)
[2023-12-04] MEDS: MAGNESIUM SULFATE 1GM/100ML 100 ML IV ONE (13:24)
[2023-12-04] MEDS: POTASSIUM CHL 20MEQ/100ML 100 ML IV SCH (13:24)
[2023-12-04] MEDS: FOLIC ACID 1 MG, MAGNESIUM SULF SDV 50% 8 MEQ, MULTIPLE VITAMIN 10 ML, THIAMINE INJ 100... INJ SCH (13:43)
[2023-12-04] MEDS: DIGOXIN (250MCG/ML) 2 ML AMPULE ONE (13:46)
[2023-12-04] MEDS: ENOXAPARIN SOD 80 MG/0.8ML SYRINGE SC ONE (13:52)
[2023-12-04] MEDS: AMIODARONE BOLUS KIT 100 ML IV ONE (14:30)
[2023-12-04] MEDS: AMIODARONE 450mg/250ml AE 250 ML IV SCH ×2 (14:46→22:01)
[2023-12-04] MEDS: LEVALBUTEROL HCL 1.25 MG/3 ML NEB NEB SCH (18:28)
[2023-12-04] MEDS ORDERED: LORazepam 2MG/ML-1ML VIAL IV PRN (19:15)
[2023-12-04] MEDS ORDERED: cefTRIAXone 1GM/50ML D5W 50 ML IV SCH (21:00)
[2023-12-04] MEDS: LORazepam MDV 2MG/ML 50 MG in SODIUM CHL 0.9% 25 ML IV SCH (22:00)
[2023-12-04] MEDS: cefTRIAXone 1GM/50ML D5W 50 ML IV SCH (22:51)
[2023-12-05] VITALS (99 sets, daily range): BP systolic 85–207; BP diastolic 68–166; PULSE 98–176; RESP 13–45; TEMP 97.8–100.4; O2SAT 76–100
[2023-12-05] MEDS: DIGOXIN (250MCG/ML) 2 ML AMPULE IV ONE ×2 (01:44→13:17)
[2023-12-05 02:14] LABS: Basophils # (auto) 0 10 ^3/uL (0-0.2); Basophils % (auto) 0.2 % (0.0-2.0); Eosinophils # (auto) 0 10 ^3/uL (0-0.8); Hematocrit 34.4 % (41.0-53.0); Hemoglobin 11.9 g/dL (13.5-17.5); Lymphocytes # (auto) 0.4 10 ^3/uL (0.4-5.4); Lymphocytes % (auto) 6.5 % (10.0-50.0); Mean Corpuscular Hemoglobin 36.7 pg (28.0-32.0); Mean Corpuscular Hgb Conc. 34.5 g/dL (32.0-36.0); Mean Corpuscular Volume 106.3 fL (80.0-100.0); Monocytes # (auto) 0.7 10 ^3/uL (0-1.3); Monocytes % (auto) 11.4 % (0.0-12.0); Neutrophils % (auto) 81.9 % (37.0-80.0); Platelet Count (auto) 101 10^3/uL (140-450); Red Blood Cells 3.24 10^6/uL (4.5-5.90); Red Cell Distribution Width 13.9 % (11.8-14.3); White Blood Cell 6.1 10^3/uL (4.4-10.8)
[2023-12-05 02:28] LABS: Alanine Aminotransferase 23 U/L (7-40); Albumin 4.1 g/dL (3.2-4.8); Alkaline Phosphatase 44 U/L (46-116); Anion Gap 13 (5-15); Aspartate Aminotransferase 37 U/L (13-40); BUN/Creatinine Ratio 8.9 (10.0-20.0); Bilirubin, Total 2.6 mg/dL (0.2-1.0); Blood Urea Nitrogen 7 mg/dL (9-23); Calcium 8.2 mg/dL (8.7-10.4); Carbon Dioxide 19 mmol/L (20-31); Chloride 109 mmol/L (98-107); Glucose 153 mg/dL (74-106); Magnesium 1.7 mg/dL (1.6-2.6); Potassium 3.3 mmol/L (3.5-5.1); Sodium 141 mmol/L (136-145); Total Protein 6.3 g/dL (5.7-8.2)
[2023-12-05] MEDS: POTASSIUM CHL 20MEQ/100ML 100 ML IV ONE (05:21)
[2023-12-05] MEDS: MAGNESIUM SULFATE 1GM/100ML 100 ML IV ONE ×2 (05:24→17:18)
[2023-12-05 05:27] LABS: Base Excess -2.7 mmol/L (-2.0-3.0)
[2023-12-05] MEDS: AMIODARONE 450mg/250ml AE 250 ML IV SCH ×3 (06:05→21:33)
[2023-12-05] MEDS: FAMOTIDINE (10MG/ML) 2ML VL IV ONE (11:15)
[2023-12-05 11:26] LABS: Amphetamine Screen, Urine Neg (NEGATIVE); Benzodiazephine Screen, Urine Neg (NEGATIVE)
[2023-12-05 11:27] LABS: Barbiturate Scree,Urine Neg (NEGATIVE); Cocaine Screen, Urine Neg (NEGATIVE)
[2023-12-05 11:28] LABS: Cannabinoid Screen, Urine Neg (NEGATIVE); Opiate Scree,Urine Neg (NEGATIVE); Phencyclidine Screen, Urine Neg (NEGATIVE)
[2023-12-05] MEDS: THIAMINE 100mg/ml INJ (200mg/2ml VIAL) IV ONE (12:03)
[2023-12-05] MEDS: FUROSEMIDE 20 MG/2 ML VIAL IV ONE (12:04)
[2023-12-05 12:29] LABS: INR 1.38 (0.9-1.15); Prothrombin Time 14.3 sec (9.3-11.8)
[2023-12-05] MEDS ORDERED: METOPROLOL TARTRATE 1MG/1ML-5ML VIAL IV PRN (12:30)
[2023-12-05] MEDS: SODIUM CHLORIDE 0.9% 1,000 ML IV SCH (12:30)
[2023-12-05] MEDS: IOHEXOL 350 MG/ML 100ML IJ ONE (12:45)
[2023-12-05] MEDS: SODIUM CHLORIDE 0.9% 1,900 ML IV ONE (13:00)
[2023-12-05] MEDS: methylPREDNISolone SOD SUCC 40 MG/ML VL IV SCH (13:12)
[2023-12-05] MEDS: ENOXAPARIN SOD 40 MG/0.4 ML SYRINGE SC ONE (13:13)
[2023-12-05 13:28] LABS: Potassium 3.4 mmol/L (3.5-5.1)
[2023-12-05 13:35] LABS: Magnesium 1.9 mg/dL (1.6-2.6)
[2023-12-05] MEDS: POTASSIUM CHL 20MEQ/100ML 100 ML IV SCH (17:18)
[2023-12-05] MEDS ORDERED: ACETAMINOPHEN 325 MG RECT SUPP PR PRN (17:45)
[2023-12-05] MEDS: LORazepam 2MG/ML-1ML VIAL IV PRN (18:56)
[2023-12-05] MEDS: FAMOTIDINE (10MG/ML) 2ML VL IV SCH (22:27)
[2023-12-06] VITALS (96 sets, daily range): BP systolic 111–143; BP diastolic 79–110; PULSE 87–146; RESP 11–28; TEMP 97.9–98.9; O2SAT 86–100
[2023-12-06 04:48] LABS: Basophils # (auto) 0 10 ^3/uL (0-0.2); Basophils % (auto) 0.1 % (0.0-2.0); Eosinophils # (auto) 0 10 ^3/uL (0-0.8); Hematocrit 38.6 % (41.0-53.0); Hemoglobin 13.2 g/dL (13.5-17.5); Lymphocytes # (auto) 0.3 10 ^3/uL (0.4-5.4); Lymphocytes % (auto) 4.9 % (10.0-50.0); Mean Corpuscular Hemoglobin 36.7 pg (28.0-32.0); Mean Corpuscular Hgb Conc. 34.3 g/dL (32.0-36.0); Mean Corpuscular Volume 107.1 fL (80.0-100.0); Monocytes # (auto) 0.5 10 ^3/uL (0-1.3); Monocytes % (auto) 7.8 % (0.0-12.0); Neutrophils # (auto) 5.2 10 ^3/uL (1.6-8.6); Neutrophils % (auto) 87.2 % (37.0-80.0); Platelet Count (auto) 103 10^3/uL (140-450); Red Cell Distribution Width 13.6 % (11.8-14.3)
[2023-12-06 05:20] LABS: Alanine Aminotransferase 23 U/L (7-40); Alkaline Phosphatase 44 U/L (46-116); Anion Gap 10 (5-15); Aspartate Aminotransferase 45 U/L (13-40); BUN/Creatinine Ratio 16.9 (10.0-20.0); Bilirubin, Total 2.9 mg/dL (0.2-1.0); Blood Urea Nitrogen 10 mg/dL (9-23); Calcium 8.8 mg/dL (8.7-10.4); Carbon Dioxide 21 mmol/L (20-31); Chloride 110 mmol/L (98-107); Glucose 167 mg/dL (74-106); Lipase 162 U/L (12-53); Sodium 141 mmol/L (136-145)
[2023-12-06 05:21] LABS: Total Protein 6.4 g/dL (5.7-8.2)
[2023-12-06] MEDS: METOPROLOL TARTRATE 1MG/1ML-5ML VIAL IV ONE (07:45)
[2023-12-06] MEDS: ENOXAPARIN SOD 40 MG/0.4 ML SYRINGE SC SCH (09:56)
[2023-12-06] MEDS: THIAMINE 100mg/ml INJ (200mg/2ml VIAL) IV SCH (09:56)
[2023-12-06] MEDS: DIGOXIN (250MCG/ML) 2 ML AMPULE IV SCH (09:57)
[2023-12-06] MEDS: IOHEXOL 350 MG/ML 100ML IJ ONE (13:11)
[2023-12-06] MEDS: LORazepam 2MG/ML-1ML VIAL IV PRN (16:28)
[2023-12-06] MEDS: chlordiazePOXIDE HCL 25 MG CAP PO SCH (17:16)
[2023-12-06] MEDS: LEVALBUTEROL HCL 1.25 MG/3 ML NEB NEB PRN (21:04)
[2023-12-07] VITALS (66 sets, daily range): BP systolic 118–143; BP diastolic 86–111; PULSE 87–132; RESP 10–22; TEMP 96.8–98.5; O2SAT 75–100
[2023-12-07 05:43] LABS: Basophils # (auto) 0 10 ^3/uL (0-0.2); Basophils % (auto) 0.1 % (0.0-2.0); Eosinophils # (auto) 0 10 ^3/uL (0-0.8); Hematocrit 34.9 % (41.0-53.0); Hemoglobin 12.1 g/dL (13.5-17.5); Lymphocytes # (auto) 0.3 10 ^3/uL (0.4-5.4); Lymphocytes % (auto) 5.9 % (10.0-50.0); Mean Corpuscular Hemoglobin 37.2 pg (28.0-32.0); Mean Corpuscular Hgb Conc. 34.6 g/dL (32.0-36.0); Mean Corpuscular Volume 107.7 fL (80.0-100.0); Monocytes # (auto) 0.4 10 ^3/uL (0-1.3); Monocytes % (auto) 7.3 % (0.0-12.0); Neutrophils # (auto) 4.1 10 ^3/uL (1.6-8.6); Neutrophils % (auto) 86.7 % (37.0-80.0); Platelet Count (auto) 139 10^3/uL (140-450); Red Blood Cells 3.24 10^6/uL (4.5-5.90); Red Cell Distribution Width 13.5 % (11.8-14.3); White Blood Cell 4.8 10^3/uL (4.4-10.8)
[2023-12-07 05:54] LABS: Alanine Aminotransferase 18 U/L (7-40); Albumin 3.7 g/dL (3.2-4.8); Alkaline Phosphatase 43 U/L (46-116); Anion Gap 9 (5-15); Aspartate Aminotransferase 25 U/L (13-40); BUN/Creatinine Ratio 25.8 (10.0-20.0); Blood Urea Nitrogen 16 mg/dL (9-23); Calcium 8.8 mg/dL (8.7-10.4); Carbon Dioxide 24 mmol/L (20-31); Chloride 112 mmol/L (98-107); Creatine Kinase IFCC 54 U/L (46-171); Glucose 152 mg/dL (74-106); Lipase 130 U/L (12-53); Potassium 3.8 mmol/L (3.5-5.1); Sodium 145 mmol/L (136-145)
[2023-12-07 05:55] LABS: Bilirubin, Total 1.4 mg/dL (0.2-1.0)
[2023-12-07] MEDS: POTASSIUM CHL 20 Meq TABLET PO ONE (10:39)
[2023-12-07] MEDS: EMPAGLIFLOZIN 10 MG TAB PO SCH (10:40)
[2023-12-07] MEDS: AMIODARONE HCL 200 MG TAB PO SCH (10:40)
[2023-12-07] MEDS: SPIRONOLACTONE 25 MG TAB PO SCH (10:40)
[2023-12-07] MEDS: METOPROLOL TARTRATE 25 MG TAB PO SCH (10:41)
[2023-12-07] MEDS: ENOXAPARIN SOD 100 MG/1 ML SYRINGE SC SCH (10:41)
[2023-12-07] MEDS: LISINOPRIL 5 MG TAB PO SCH (10:41)
[2023-12-08] VITALS (36 sets, daily range): BP systolic 122–140; BP diastolic 82–105; PULSE 83–120; RESP 10–36; TEMP 97.4–98; O2SAT 89–100
[2023-12-08 05:30] LABS: Basophils # (auto) 0 10 ^3/uL (0-0.2); Eosinophils # (auto) 0 10 ^3/uL (0-0.8); Lymphocytes # (auto) 0.2 10 ^3/uL (0.4-5.4); Monocytes # (auto) 0.3 10 ^3/uL (0-1.3); Neutrophils # (auto) 3.2 10 ^3/uL (1.6-8.6)
[2023-12-08 05:36] LABS: Basophils % (auto) 0.5 % (0.0-2.0); Hematocrit 34.2 % (41.0-53.0); Hemoglobin 11.9 g/dL (13.5-17.5); Lymphocytes % (auto) 5.6 % (10.0-50.0); Mean Corpuscular Hemoglobin 36.9 pg (28.0-32.0); Mean Corpuscular Hgb Conc. 34.7 g/dL (32.0-36.0); Mean Corpuscular Volume 106.2 fL (80.0-100.0); Monocytes % (auto) 7.4 % (0.0-12.0); Neutrophils % (auto) 86.5 % (37.0-80.0); Platelet Count (auto) 143 10^3/uL (140-450); Red Blood Cells 3.22 10^6/uL (4.5-5.90); Red Cell Distribution Width 13.3 % (11.8-14.3); White Blood Cell 3.7 10^3/uL (4.4-10.8)
[2023-12-08 05:43] LABS: Alanine Aminotransferase 23 U/L (7-40); Albumin 3.5 g/dL (3.2-4.8); Alkaline Phosphatase 45 U/L (46-116); Anion Gap 9 (5-15); Aspartate Aminotransferase 39 U/L (13-40); BUN/Creatinine Ratio 35.5 (10.0-20.0); Blood Urea Nitrogen 22 mg/dL (9-23); Carbon Dioxide 23 mmol/L (20-31); Chloride 113 mmol/L (98-107); Glucose 131 mg/dL (74-106); Potassium 3.6 mmol/L (3.5-5.1); Sodium 145 mmol/L (136-145); Total Protein 5.7 g/dL (5.7-8.2)
[2023-12-09] VITALS (11 sets, daily range): BP systolic 128–145; BP diastolic 85–99; PULSE 74–115; RESP 16–20; TEMP 96.8–98.2; O2SAT 96–99
[2023-12-09 06:41] LABS: Basophils # (auto) 0 10 ^3/uL (0-0.2); Basophils % (auto) 0.1 % (0.0-2.0); Eosinophils # (auto) 0 10 ^3/uL (0-0.8); Hematocrit 36.8 % (41.0-53.0); Hemoglobin 12.4 g/dL (13.5-17.5); Lymphocytes # (auto) 0.2 10 ^3/uL (0.4-5.4); Lymphocytes % (auto) 5.2 % (10.0-50.0); Mean Corpuscular Hemoglobin 35.6 pg (28.0-32.0); Mean Corpuscular Hgb Conc. 33.6 g/dL (32.0-36.0); Monocytes # (auto) 0.3 10 ^3/uL (0-1.3); Monocytes % (auto) 7.9 % (0.0-12.0); Neutrophils # (auto) 3.3 10 ^3/uL (1.6-8.6); Neutrophils % (auto) 86.8 % (37.0-80.0); Nucleated Red Blood Cells % 0.1 %; Platelet Count (auto) 168 10^3/uL (140-450); Red Blood Cells 3.48 10^6/uL (4.5-5.90); Red Cell Distribution Width 13.3 % (11.8-14.3); White Blood Cell 3.8 10^3/uL (4.4-10.8)
[2023-12-09 06:43] LABS: Mean Corpuscular Volume 105.9 fL (80.0-100.0)
[2023-12-09 07:00] LABS: Alanine Aminotransferase 24 U/L (7-40); Albumin 3.4 g/dL (3.2-4.8); Alkaline Phosphatase 44 U/L (46-116); Anion Gap 10 (5-15); Aspartate Aminotransferase 37 U/L (13-40); BUN/Creatinine Ratio 32.7 (10.0-20.0); Blood Urea Nitrogen 18 mg/dL (9-23); Calcium 8.8 mg/dL (8.7-10.4); Carbon Dioxide 24 mmol/L (20-31); Chloride 111 mmol/L (98-107); Glucose 133 mg/dL (74-106); Magnesium 2.1 mg/dL (1.6-2.6); Potassium 3.4 mmol/L (3.5-5.1); Sodium 145 mmol/L (136-145)
[2023-12-09 07:01] LABS: Total Protein 5.7 g/dL (5.7-8.2)
[2023-12-10] VITALS (10 sets, daily range): BP systolic 121–141; BP diastolic 83–104; PULSE 72–102; RESP 16–20; TEMP 97.4–97.9; O2SAT 96–99
[2023-12-10 18:03] LABS: Chloride 111 mmol/L (98-107); Potassium 3.7 mmol/L (3.5-5.1); Sodium 144 mmol/L (136-145)
[2023-12-10 18:04] LABS: Anion Gap 11 (5-15); Calcium 8.8 mg/dL (8.7-10.4); Carbon Dioxide 22 mmol/L (20-31)
[2023-12-10 18:09] LABS: Blood Urea Nitrogen 18 mg/dL (9-23); Glucose 151 mg/dL (74-106)
[2023-12-11] VITALS (10 sets, daily range): BP systolic 118–136; BP diastolic 76–97; PULSE 63–103; RESP 15–18; TEMP 96.9–98.5; O2SAT 95–100
[2023-12-12] VITALS (8 sets, daily range): BP systolic 113–152; BP diastolic 79–98; PULSE 75–98; RESP 14–19; TEMP 97–98.6; O2SAT 95–100
[2023-12-12] MEDS: methylPREDNISolone SOD SUCC 40 MG/ML VL IV SCH (09:37)
[2023-12-13] VITALS (7 sets, daily range): BP systolic 109–139; BP diastolic 78–100; PULSE 83–100; RESP 13–18; TEMP 97.2–98.1; O2SAT 93–99
== END 2023-12-13 19:51 | DRG 816 ==
LOC: ER 10:18 → OVERFLOW 12:42 → CENTRAL 12:42 → TELE-CENTR 12-04 15:18 → ICU WEST 12-04 23:20 → ICU CENTRL 12-06 05:10 → DOU IN ICU 12-07 09:37 → TELE-CENTR 12-08 18:15
PROVIDERS: ADMIT Hospitalist; ATTEND Internal Medicine
PROC: 05HC33Z Insertion of Infusion Device into Left Basilic Vein, Percutaneous Approach (ICD-10-PCS; 2023-12-06)
PROC: B54NZZA Ultrasonography of Left Upper Extremity Veins, Guidance (ICD-10-PCS; 2023-12-06)
PROC: 0S9C3ZZ Drainage of Right Knee Joint, Percutaneous Approach (ICD-10-PCS; principal; 2023-12-07)
DX: T51.0X1A Toxic effect of ethanol, accidental (unintentional), initial encounter (principal); G92.8 Other toxic encephalopathy; I50.23 Acute on chronic systolic (congestive) heart failure; K85.20 Alcohol induced acute pancreatitis without necrosis or infection; F10.231 Alcohol dependence with withdrawal delirium; D69.6 Thrombocytopenia, unspecified; E87.20 Acidosis, unspecified; I50.82 Biventricular heart failure; I11.0 Hypertensive heart disease with heart failure; K76.0 Fatty (change of) liver, not elsewhere classified; K52.9 Noninfective gastroenteritis and colitis, unspecified; E66.9 Obesity, unspecified; K21.9 Gastro-esophageal reflux disease without esophagitis; Z68.30 Body mass index [BMI] 30.0-30.9, adult; M10.9 Gout, unspecified; E83.42 Hypomagnesemia; E87.6 Hypokalemia; F17.210 Nicotine dependence, cigarettes, uncomplicated; I48.91 Unspecified atrial fibrillation; R56.9 Unspecified convulsions; F10.229 Alcohol dependence with intoxication, unspecified; M17.11 Unilateral primary osteoarthritis, right knee; Y90.9 Presence of alcohol in blood, level not specified; Z82.49 Family history of ischemic heart disease and other diseases of the circulatory system; Z59.00 Homelessness unspecified; Z79.899 Other long term (current) drug therapy
CPT/HCPCS: 36415; 36600; 70450; 71045; 71275; 76705; 76881; 76942; 80048; 80053; 80061; 80074; 80307; 80320; 81001; 82140; 82550; 82805; 82962; 83036; 83605; 83690; 83735; 83880; 84132; 84443; 84484; 84550; 85025; 85048; 85610; 87045; 87081; 87086; 87205; 87427; 92610; 93306; 93970; 94640; 95819; 96361; 96374; 96375; 97110; 97116; 97163; 97530; G0378; J1885; J2405; J2470; J3480; J3490